=== PATIENT | male | born 2000 | race Hispanic/Latino ===

== ENCOUNTER 2018-07-21 15:25 | Emergency (ER) | payer SELFPAY ==
[~2018-07-21] VITALS: Ht 182.9 cm; Wt 113.4 kg
[2018-07-21] MEDS ORDERED: HYDROCODONE/APAP 10MG-325MG TAB PO ONE (15:45)
--- NOTE | 2018-07-21 16:59 | Diagnostic Imaging Report ---
Exam: Left foot and ankle 3 views History: Pain, evaluate for fracture Comparison: None. Findings: No fracture or malalignment. Joint spaces preserved. Soft tissue swelling Impression: No acute osseous abnormality Soft tissue swelling. Signed by: Dr. Dre Jeffery M.D. on 07/21/2018 4:55 PM
[2018-07-21 18:33] VITALS: BP 164/90
== END 2018-07-21 18:45 | disposition home or self-care (01) ==
LOC: ER 15:25
DX: S93.492A Sprain of other ligament of left ankle, initial encounter (principal); X50.1XXA Overexertion from prolonged static or awkward postures, initial encounter; Y99.0 Civilian activity done for income or pay
CPT/HCPCS: 99284